=== PATIENT | male | born 1975 | race African-American/Black ===

== ENCOUNTER 2016-11-01 12:41 | Emergency (ER) ==
[2016-11-01 13:07] VITALS: BP 122/89
[2016-11-01] MEDS ORDERED: TORADOL IM ONE (14:19)
[2016-11-01] MEDS ORDERED: TORADOL PO ONE (14:21)
--- NOTE | 2016-11-01 14:24 | PROVIDER DOCUMENTATION ---
HPI-General Adult - General Chief Complaint: General Adult Stated Complaint: "WIRE IN CHIN" Time Seen by Provider: 11/01/16 14:16 Source: patient Allergies/Adverse Reactions: Patient Allergies Allergy/AdvReac Type Severity Reaction Status Date / Time No Known Allergies Allergy Verified 12/10/12 06:16 - History of Present Illness -Gen Adult Nature of Presenting Problems: 40 y/o AAM c/o "wire in my chin for the past 20 years." States the pain has become excruciating in the past week. Has never followed up for it. States he thinks it is moving. Denies new injuries. Denies fevers or chills. pain is severe in his chin, without radiating. Review of Systems - Adult - REVIEW OF SYSTEMS - ADULT Constitutional: reports: no symptoms reported. denies: chills, fever, fatique Eyes: reports: no symptoms reported. denies: blurred vision, double vision, eye pain Ears, Nose, Mouth & Throat: reports: other (chin pain). denies: ear pain, nose pain, throat pain Cardiovascular: reports: no symptoms reported. denies: chest pain, palpitations Respiratory: reports: no symptoms reported. denies: cough, shortness of breath , wheezing Gastrointestinal: reports: no symptoms reported. denies: abdominal pain, diarrhea, nausea, vomiting Genitourinary: reports: no symptoms reported. denies: dysuria, discharge, frequency, incontinence Musculoskeletal: reports: no symptoms reported. denies: muscle aches Integumentary: reports: no symptoms reported. denies: rash Neurological: reports: no symptoms reported. denies: headache/migraines Psychiatric: reports: no symptoms reported Endocrine: reports: no symptoms reported Hematologic/Lymphatic: reports: no symptoms reported Allergic/Immunologic: reports: no symptoms reported All Other Systems: Reviewed and Negative Past History - Adult - PAST MEDICAL HISTORY-ADULT Review of Records: reports: Old Records Reviewed, Nursing Assessment Review, Medications Reviewed Major Childhood Illnesses: reports: denies history Cardiovascular: reports: denies history Respiratory: reports: denies history Gastrointestinal: reports: denies history Genitourinary: reports: denies history Musculoskeletal: reports: denies history Neurological: reports: denies history Endocrine/Immune: reports: denies history Other Conditions: reports: denies history - FAMILY HISTORY Family History: reviewed, not pertinent Physical Exam-General - PHYSICAL EXAM-ADULT Initial Vital Signs Reviewed: Yes - CONSTITUTIONAL General Appearance: appears well, alert, no apparent distress - EYES Eyes: PERRL/EOMI, pink conjunctivae - HEAD, EARS, NOSE, MOUTH & THROAT HENMT: normocephalic/atraumatic, moist mucous membranes, normal ENT inspection, other (there are no obvious deformities of the chin, no signs of infection, abscess formation. No difficulty speaking) - NECK Neck: non-tender, full range of motion, supple, normal inspection - RESPIRATORY Respiratory: chest non-tender, lungs clear, normal breath sounds, no pleuratic chest pain, no respiratory distress, no accessory muscle use. negative: respiratory distress, decreased breath sounds, accessory muscle use, crackles, rales, rhonchi, wheezing - MUSCULOSKELETAL Extremity: normal gait - SKIN Integumentary: normal color, normal turgor, warm/dry - NEUROLOGIC Neurologic: grossly normal, no motor/sensory deficits - PSYCHIATRIC Psych/Mental Status: normal mood/affect, normal thought content, normal thought process, oriented x 3 Progress - PLAN OF CARE/RESULTS Progress/Plan/Lab Results: Vital Signs Temp Pulse Resp BP Pulse Ox 11/01/16 13:04 98.2 F 78 18 122/89 100 No Known Allergies Allergy (Verified 12/10/12 06:16) Amoxicillin/Pot Clavulanate [Augmentin] 875 mg PO Q12HR #20 tablet 12/10/12 No Home Medications 12/10/12 Orders Category Date Time Status Ketorolac [Toradol] Med 11/01/16 14:21 Discontinued 10 mg PO NOW ONE Ketorolac [Toradol] Med 11/01/16 14:19 Stop Req 30 mg IM NOW ONE Departure - Departure Time of Disposition Order: 14:22 DIAGNOSIS: Jaw pain, non-TMJ Disposition: HOME 01 Certified Medical Emergency: Emergent Condition: Stable Additional Instructions: Follow up with your primary care physician ED Follow Up Instructions: You have been treated by a care provider in the Emergency Department. These instructions are being provided to you so you can have an understanding of how to care for yourself upon discharge. Upon discharge from the Emergency Department, you are responsible for making arrangements for follow-up care by a physician of your choice. Take all prescribed medications as directed. Return to the Emergency Department immediately for any new or worsening symptoms. You may call the Physician Referral phone number at [phone] to obtain a list of Physicians who are taking new patients. Prescriptions: Famotidine [Pepcid] 20 mg PO DAILY #20 tablet Ketorolac [Toradol] 10 mg PO Q6H PRN PRN #20 tablet PRN Reason: Pain Attestation - Physician/ Mid-level Attestation Patient care was provided by Mid-level provider ([employer]/PA):: Yes Mid-level provider:: Caitlin Narvaez Mid-level documentation review:: The Mid-level provider documentation, treatment plan and medical decision making was reviewed by the physician who agrees with all treatment and medical decision making by the MLP.
== END 2016-11-01 14:48 | disposition home or self-care (01) ==
LOC: ED 12:41
DX: R68.84 Jaw pain (principal); R51 Headache
CPT/HCPCS: 99282

== ENCOUNTER 2016-11-02 14:02 | Emergency (ER) ==
[2016-11-02 14:13] VITALS: BP 151/109
--- NOTE | 2016-11-02 15:04 | PROVIDER DOCUMENTATION ---
HPI-General Adult - General Chief Complaint: Return/Recheck Stated Complaint: MOUTH PAIN Time Seen by Provider: 11/02/16 15:00 Source: patient Allergies/Adverse Reactions: Patient Allergies Allergy/AdvReac Type Severity Reaction Status Date / Time No Known Allergies Allergy Verified 11/01/16 14:45 - History of Present Illness -Gen Adult Nature of Presenting Problems: patient is a 40 y/o M that presents to the ER requesting imaging due to the feeling that his wire moved in his jaw. He had reconstructive surgery on jaw and mouth 20 years ago at [facility], he was unable to follow due to financial issues. He comes in today after feeling something slipped in jaw 5 days ago and he is worried that he will choke on the wire. He was seen at [facility] yesterday and referred. Patient comes in wanting radiology testing. He has pain and reports subjective swelling. Location of Pain/Injury: reports: face Pain Radiation: reports: no radiation Quality of Pain: reports: sharp Severity: reports: mild Onset/Duration: reports: gradual, 5 days ago Timing: reports: still present Context/Activities at Onset: reports: other (surgical reconstruction 20 years ago post trauma) Modifying Factors: worse with: movement Associated Symptoms: reports: EENT symptoms. denies: back/neck pain, chest pain , diarrhea, dizziness, fever/chills, genitourinary problems, nausea, vomiting Similar Symptoms Previously?: Yes Recently seen or treated by another doctor?: Yes Review of Systems - Adult - REVIEW OF SYSTEMS - ADULT Constitutional: reports: no symptoms reported Eyes: reports: no symptoms reported Ears, Nose, Mouth & Throat: reports: see HPI Cardiovascular: reports: no symptoms reported Respiratory: reports: no symptoms reported Gastrointestinal: reports: no symptoms reported Genitourinary: reports: no symptoms reported Musculoskeletal: reports: no symptoms reported Integumentary: reports: no symptoms reported Neurological: reports: no symptoms reported Psychiatric: reports: no symptoms reported Endocrine: reports: no symptoms reported Hematologic/Lymphatic: reports: no symptoms reported Allergic/Immunologic: reports: no symptoms reported All Other Systems: Reviewed and Negative Past History - Adult - PAST MEDICAL HISTORY-ADULT Review of Records: reports: Old Records Reviewed, Nursing Assessment Review, Medications Reviewed - PRIOR SURGERIES/PROCEDURES Surgical/Procedure History: reports: other (oral and facial reconstruction) - IMMUNIZATION STATUS Childhood Immunizations: See Nurse Assessment Flu Vaccine: See Nurse Assessment - FAMILY HISTORY Family History: reviewed, not pertinent - SOCIAL HISTORY Smoking: cigarettes, less than 1 pack/day Alcohol Use Frequency: occasionally Living Situation: family Physical Exam-General - PHYSICAL EXAM-ADULT Initial Vital Signs Reviewed: Yes - CONSTITUTIONAL General Appearance: alert, no apparent distress - EYES Eyes: PERRL/EOMI, pink conjunctivae - HEAD, EARS, NOSE, MOUTH & THROAT HENMT: normocephalic/atraumatic, moist mucous membranes, pharynx normal, other ( small hole in mouth but no swelling). negative: angioedema, dental decay - NECK Neck: non-tender, full range of motion, normal inspection - RESPIRATORY Respiratory: lungs clear, normal breath sounds, no respiratory distress, no accessory muscle use - CARDIOVASCULAR Cardiovascular: regular rate, rhythm, no gallop, no murmur - GASTROINTESTINAL (ABDOMEN) Abdominal Exam: normal bowel sounds, non tender, soft - MUSCULOSKELETAL Back Exam: normal inspection, no vertebral tenderness Extremity: normal range of motion, normal inspection, normal capillary refill - SKIN Integumentary: normal color, normal turgor, warm/dry - NEUROLOGIC Neurologic: grossly normal, no motor/sensory deficits - PSYCHIATRIC Psych/Mental Status: normal mood/affect, normal thought content, normal thought process, oriented x 3 Progress - PLAN OF CARE/RESULTS Progress/Plan/Lab Results: Vital Signs Temp Pulse Resp BP Pulse Ox 11/02/16 14:06 99.3 F 81 20 151/109 100 No Known Allergies Allergy (Verified 11/01/16 14:45) Famotidine [Pepcid] 20 mg PO DAILY #20 tablet 11/01/16 Ketorolac [Toradol] 10 mg PO Q6H PRN PRN #20 tablet 11/01/16 Laboratory 11/02/16 11/02/16 15:20 15:20 WBC 8.44 RBC 5.24 Hgb 14.8 Hct 44.4 MCV 84.7 MCH 28.2 MCHC 33.3 RDW Std Deviation 14.5 Plt Count 307 MPV 8.3 Immature Gran % (Auto) 0.4 Neut % (Auto) 63.1 Lymph % (Auto) 24.2 Lincoln % (Auto) 11.1 H Eos % (Auto) 0.8 Baso % (Auto) 0.4 Immature Gran # (Auto) 0.03 Neut # (Auto) 5.33 Lymph # (Auto) 2.04 Lincoln # (Auto) 0.94 H Eos # (Auto) 0.07 Baso # (Auto) 0.03 Sodium 139 Potassium 4.3 Chloride 104 Carbon Dioxide 26 Anion Gap 9 BUN 14 Creatinine 1.0 Estimated GFR/1.73 m2 > 60 BUN/Creatinine Ratio 14 Glucose 102 Calculated Osmolality 278 Calcium 9.4 Total Bilirubin 0.30 AST 14 ALT 13 Alkaline Phosphatase 85 Total Protein 7.5 Albumin 4.1 Globulin 3.0 Albumin/Globulin Ratio 1.0 Orders Category Date Time Status Saline Loc NOW Care 11/02/16 15:10 Active NECK W/CONTRAST [CT] Stat Exams 11/02/16 15:10 Taken CBC WITH DIFF [HEME] Stat Lab 11/02/16 15:20 Completed COMPREHENSIVE METABOLIC PANEL [CHEM] Stat Lab 11/02/16 15:20 Completed pt will be d/c home f/u with ENT, rx given, pt was clinically stable,understood results and instructions ct neck w/contrast report as follows bilateral submandibular adenopathy ?0.6cm lesion at left anterior submandibular region a few borderline bilateral posterior triange lymph node no acute bony lesion - CT/MRI 1 CT Study: other (facial) Impression: Abnormal CT Results: see progress note for whole report Departure - Departure Time of Disposition Order: 17:09 DIAGNOSIS: Jaw pain, non-TMJ Disposition: HOME 01 Certified Medical Emergency: Emergent Condition: Stable Additional Instructions: ED Follow Up Instructions: You have been treated by a care provider in the Emergency Department. These instructions are being provided to you so you can have an understanding of how to care for yourself upon discharge. Upon discharge from the Emergency Department, you are responsible for making arrangements for follow-up care by a physician of your choice. Take all prescribed medications as directed. Return to the Emergency Department immediately for any new or worsening symptoms. You may call the Physician Referral phone number at [phone] to obtain a list of Physicians who are taking new patients. Referrals: None,PCP [Primary Care Provider] - Jatin Roche MD [STAFF PHYSICIAN] - (call for f/u) Attestation - Scribe Verification/Attestation Scribe:: Michele Perdomo Acting as Scribe for:: Sara Morrow Scribe documention review:: This chart was documented by a scribe and accurately reflects the service the provider performed and the decisions made by the provider. Physician Attestation - Physician Attestation I, the provider, attest to the following statement:: Sara Morrow Physician documentation Attestation:: This documentation recorded by the scribe accurately reflects the service I personally performed and the decisions made by me.
[2016-11-02 15:24] LABS: MANUAL DIFF NEEDED? NO
[2016-11-02 15:35] LABS: BASO% 0.4 % (0.0-0.8); EOS# 0.07 X1000 (0.0-0.7); EOS% 0.8 % (0.0-10.0); HEMATOCRIT 44.4 % (42.0-52.0); HEMOGLOBIN 14.8 g/dL (14.0-18.0); IMM GRAN# 0.03 X1000 (0.0-0.04); IMM GRAN% 0.4 % (0.0-0.5); LYMPH# 2.04 X1000 (1.2-3.4); LYMPH% 24.2 % (20.5-51.1); MCH 28.2 PG (27-31); MCHC 33.3 g/dL (33-37); MCV 84.7 FL (81-99); MONO# 0.94 X1000 (0.11-0.59); MONO% 11.1 % (1.7-9.3); MPV 8.3 FL (7.4-10.4); NEUT% 63.1 % (42.2-75.2); PLT 307 X1000 (130-400); RBC 5.24 XMIL (4.7-6.1)
[2016-11-02 16:02] LABS: AGAP 9; ALBUMIN 4.1 g/dL (3.5-5.0); ALKALINE PHOSPHATASE 85 U/L (32-122); BUN 14 mg/dL (8-22); CALCIUM 9.4 mg/dL (8.8-10.2); CHLORIDE 104 mmol/L (98-107); COSMO 278; GOT 14 U/L (10-34); GPT 13 U/L (10-44); POTASSIUM 4.3 mmol/L (3.5-5.1); SODIUM 139 mmol/L (136-145); TCO2 26 mmol/L (25-35); TOTAL PROTEIN 7.5 g/dL (6.3-8.3)
[2016-11-02] MEDS ORDERED: ROCEPHIN IM ONE (17:09)
[2016-11-02] MEDS ORDERED: XYLOCAINE-MPF 1% INJ ONE (17:09)
--- NOTE | 2016-11-02 17:34 | Diag Imaging Result Document ---
PROCEDURE NAME: NECK W/CONTRAST - 11/02/2016 CT NECK AND FACE WITH CONTRAST: FINDINGS: Exam performed with intravenous contrast. A dose-reduction protocol was used. No comparison exam. There is a relative paucity of fat in the neck with associated crowding of normal structures. This precludes the exclusion of diffuse cellulitis at the lower face. There are apparent enlarged bilateral submandibular/submental region lymph nodes , with the largest lymph nodes on each side measuring approximately 2 x 1.5 cm. There is a questionable 0.6 cm thin- walled ring-enhancing lesion at the left anterior submandibular region, but this possibly could be artifactual. There are a few borderline bilateral high and low posterior cervical triangle lymph nodes. There is no other discrete soft tissue mass identified. There is no other discrete abscess identified. There is a missing mandibular molar on the left. Early abscess formation posterior medial to this missing molar cannot be entirely excluded, but there is no associated abnormal enhancement and there are some streak artifacts in this area. There is a 0.7 cm fat density lesion in the shallow subcutaneous tissues of the left submandibular region which likely represents a small lipoma or cystic structure which contains fatty material. There is no substantial narrowing of the airway identified. There is no opaque foreign body identified. There is no precervical soft tissue swelling identified. There are postsurgical changes of the left maxilla, the anterior inferior maxilla about the midline, and anterior midline mandible. There is apparent old fracture deformity at the lateral wall of the left maxillary sinus. There is no acute fracture identified. There is no bony destructive lesion identified. There is a small mucus retention cyst at the inferior right maxillary sinus. There is some bilateral ethmoid air cell mucosal thickening. There is no substantial paranasal sinus fluid identified. IMPRESSION: 1. A few enlarged bilateral submandibular/submental lymph nodes. Questionable 0.6 cm ring- enhancing lesion at left anterior submandibular region. 2. A few borderline enlarged bilateral posterior cervical triangle lymph nodes. 3. Postsurgical changes at the bony structures of the face. No acute fracture identified. No bony destructive lesion identified. 4. No discrete abscess identified, but early abscess formation posterior medial to missing mandibular molar on the left cannot be entirely excluded. 5. Correlation with clinical evaluation is recommended. If further imaging evaluation is desired, PET-CT or MRI could be considered. [facility]
== END 2016-11-02 17:40 | disposition home or self-care (01) ==
LOC: P.ED 14:02
DX: R68.84 Jaw pain (principal); F17.210 Nicotine dependence, cigarettes, uncomplicated; Z79.899 Other long term (current) drug therapy
CPT/HCPCS: 70491; 80053; 85025; Q9967